=== PATIENT | male | born 1980 | race Caucasian/White ===

== ENCOUNTER 2021-02-14 02:31 | Emergency (ER) | payer MEDICAID ==
[~2021-02-14] VITALS: Ht 175.3 cm; Wt 72.6 kg
[2021-02-14 02:44] VITALS: BP 132/72
--- NOTE | 2021-02-14 03:03 | NUR ---
PATIENT CAME IN AMBULANCE DENIES ANY SUICIDE IDEATION .PATIENT STAY '' I ONLY FEELING DEPRESION OK? AND I AM NOT [place]OMEL[place] I LIVE IN [place] DO YOU UNDERSTAND THAT ? VITALS SIGNS IN NORMAL LIMITS NOW SLEEPING AFTER I FINISH MY TRIAGE //Aimee AGUILAR
[2021-02-14 04:07] LABS: ALBUMIN 3.5 g/dL (3.4-5.0); ANION GAP 11.7 (8-16); ASPARTATE AMINOTRANSFERASE 44 U/L (15-37); CARBON DIOXIDE 27.7 mmol/L (21-32); CHLORIDE 107 mmol/L (98-107); CREATININE 0.7 mg/dL (0.6-1.3); GFR ARICAN-AMERICAN 161 mL/min (>90); GLUCOSE 124 mg/dL (74-106); POTASSIUM 3.4 mmol/L (3.5-5.1); SODIUM SERUM 143 mmol/L (136-145); TOTAL BILIRUBIN 0.3 mg/dL (0.0-1.0); UREA NITROGEN, BLOOD 13 mg/dL (7-18)
[2021-02-14 04:10] LABS: ACETAMINOPHEN < 0.5 ug/ml (10-30); SALICYLATE < 2.8 mg/dL (2.8-20.0)
[2021-02-14 05:17] LABS: BASOPHILS % (AUTO) 0.3 % (0.0-2.0); EOSINOPHILS # (AUTO) 0.3 K/uL (0-0.4); EOSINOPHILS % (AUTO) 5.1 % (0.0-4.0); HEMATOCRIT 44.5 % (36-52); LYMPHOCYTES # (AUTO) 3.4 K/uL (2.0-11.5); LYMPHOCYTES % (AUTO) 51.5 % (20.5-51.1); MEAN CORPUSCULAR HEMOGLOBIN 31 pg (27-31); MEAN CORPUSCULAR HGB CONC 34 g/dL (33-37); MEAN CORPUSCULAR VOLUME 92.5 fL (80-94); MONOCYTES # (AUTO) 0.4 K/uL (0.8-1.0); MONOCYTES % (AUTO) 6.8 % (1.7-9.3); NEUTROPHILS # (AUTO) 2.4 K/uL (1.8-7.7); NEUTROPHILS % (AUTO) 36.3 % (42.2-75.2); PLATELET COUNT (AUTO) 244 K/uL (140-450); RED BLOOD CELL COUNT(AUTO) 4.81 MIL/uL (4.20-6.10); RED CELL DISTRIBUTION WIDTH 14.4 % (11.6-13.7); WHITE BLOOD COUNT (AUTO) 6.5 K/uL (4.8-10.8)
--- NOTE | 2021-02-14 07:30 | NUR ---
RECEIVED REPORT FROM LAUREN DC. ASSUMED CARE AT THIS TIME.
--- NOTE | 2021-02-14 07:50 | NUR ---
PATIENT PROVIDED WITH HOT BREAKFAST TRAY, PATIENT SITTING UP IN BED EATING. ALL NEEDS MET AT THIS TIME.
--- NOTE | 2021-02-14 08:25 | NUR ---
PATIENT SITTING UP IN BED FOR TELEPSYCH CONSULT WITH DR. Hernandez
--- NOTE | 2021-02-14 08:37 | NUR ---
MARY STANLEY CALLED AND REQUESTED TO PLACE PT ON 5150 HOLD PER RECOMENDATION FROM TELEPSY
--- NOTE | 2021-02-14 08:46 | NUR ---
COVID NOVEL AND ASHLEY SWAB COLLECTED AND HANDED TO CARPET OR RUG LAYER HELPER DIXIE THAIS
--- NOTE | 2021-02-14 09:00 | NUR ---
[facility] [place] [employer] BEDSIDE EVALUATING PATIENT FOR 5150 HOLD.
--- NOTE | 2021-02-14 11:00 | NUR ---
PATIENT RESTING IN BED WITH EYES CLOSED, ALL NEEDS MET AT THIS TIME.
[2021-02-14 11:09] LABS: APPEARANCE,URINE HAZY (CLEAR); BILIRUBIN,URINE NEGATIVE (NEGATIVE); BLOOD, URINE NEGATIVE (NEGATIVE); COLOR,URINE YELLOW (YELLOW); LEUKOCYTE ESTERASE ,URINE NEGATIVE (NEGATIVE); NITRITE, URINE NEGATIVE (NEGATIVE); UGLUCOSE NEGATIVE (NEGATIVE)
[2021-02-14 11:34] LABS: BARBITURATE, URINE NEGATIVE ng/ml (NEG <=200); BENZODIAZEPINE, URINE NEGATIVE ng/mL (NEG <=200); CANNABINOID, URINE NEGATIVE ng/mL (NEG <=50); COCAINE, URINE NEGATIVE ng/mL (NEG <=300); OPIATE, URINE NEGATIVE ng/mL (NEG <=2000); PHENCYCLIDINE SCREEN,URINE NEGATIVE ng/mL (NEG <=25)
--- NOTE | 2021-02-14 12:30 | NUR ---
PATIENT PROVIDED WITH LUNCH TRAY, SITTING UP IN BED EATING. ALL NEEDS MET AT THIS TIME.
--- NOTE | 2021-02-14 15:00 | NUR ---
PATIENT STATING HE IS FEELING ANXIOUS, DR. CAROLINA AWARE.
[2021-02-14] MEDS ORDERED: LORazepam 1 MG TAB PO ONE ×2 (15:15→22:45)
--- NOTE | 2021-02-14 15:30 | NUR ---
PER DR. CAROLINA PATIENT IS MEDICALLY CLEARED. PACKET FAXED TO [facility].
--- NOTE | 2021-02-14 16:00 | NUR ---
SPOKE WITH MACK FROM [facility], CONFIRMED PACKET HAS BEEN RECEIVED.
--- NOTE | 2021-02-14 16:45 | NUR ---
PATIENT APPEARS TO BE RESTING IN BED WITH EYES CLOSED, ALL NEEDS MET AT THIS TIME.
--- NOTE | 2021-02-14 18:08 | NUR ---
Packet has been fax to the following facilities [facility]
--- NOTE | 2021-02-14 18:30 | NUR ---
PATIENT APPEARS TO BE RESTING IN BED WITH EYES CLOSED, ALL NEEDS MET AT THIS TIME.
--- NOTE | 2021-02-14 19:07 | NUR ---
PATIENT PROVIDED WITH DINNER TRAY, SITTING UP IN BED EATING. ALL NEEDS MET AT THIS TIME.
--- NOTE | 2021-02-14 19:20 | NUR ---
PT GIVEN TWO SETS OF CRACKERS AND A CRANBERRY JUICE.
--- NOTE | 2021-02-14 19:27 | NUR ---
Pt report given to SAMMIE REBOLLAR. Transfer of care at this time.
--- NOTE | 2021-02-14 22:22 | NUR ---
PT REQUESTED ATIVAN . PT STATED HE WAS GETTING "ANXIETY"
--- NOTE | 2021-02-15 01:30 | NUR ---
PT SITTING UP IN BED.STATED HE WAS HUNGRY AND IF HE COULD HAVE MORE SNACKS.
--- NOTE | 2021-02-15 07:33 | NUR ---
Pt report given to JOANN. Transfer of care at this time.
--- NOTE | 2021-02-15 07:34 | NUR ---
RECEIVED REPORT FROM SMOOTH COCHRAN AND GITA RN, TRANSFER OF CARE AT THIS TIME.
--- NOTE | 2021-02-15 08:10 | NUR ---
PT RESTING, EASILY AROUSABLE, VSS, WILL CONTINUE TO MONITOR.
--- NOTE | 2021-02-15 10:21 | NUR ---
Mercedes gillespie in [facility] - 02/15/21 at 1102 by NIDA Report and continuation of care received from LAUREN Arriaza
--- NOTE | 2021-02-15 10:50 | NUR ---
GAVE REPORT TO LAUREN RIVERA. TRANSFER OF CARE AT THIS TIME.
--- NOTE | 2021-02-15 10:51 | NUR ---
Report and continuation of care received from LAUREN Arriaza
--- NOTE | 2021-02-15 11:00 | NUR ---
Patient sitting upright in bed eating breakfast meal tray. All pt needs met.
--- NOTE | 2021-02-15 11:24 | NUR ---
Patient requesting anxiety medication at this time. Dr. Mcknight made aware orders to be placed.
[2021-02-15] MEDS ORDERED: LORazepam 1 MG TAB PO ONE (11:25)
--- NOTE | 2021-02-15 11:32 | NUR ---
Patient resting in low-fowlers position. All pt needs met.
--- NOTE | 2021-02-15 13:07 | NUR ---
Patient awaken for vital signs. States he feels "a little less anxious." All pt needs met. Bed locked in lowest position, side rails x 1.
--- NOTE | 2021-02-15 13:15 | NUR ---
Lunch mealtray at bedside. Patient made aware; states "OK" and remains asleep.
--- NOTE | 2021-02-15 14:09 | NUR ---
Patient sitting upright in position of comfort completing lunch meal tray. All pt needs met.
--- NOTE | 2021-02-15 14:14 | NUR ---
PT AMBULATED TO RESTROOM WITH A STEADY GAIT.
--- NOTE | 2021-02-15 14:26 | NUR ---
Spoke with Abhi from [facility]; status update given regarding pt. Abhi states to have PCR swab completed. Orders to be placed.
--- NOTE | 2021-02-15 14:27 | NUR ---
Contacted Abhi from LAB regarding COVID NOVEL swab. States will call back
--- NOTE | 2021-02-15 14:53 | NUR ---
Abhi states no NOVEL on record in lab. New PCR to be administered
--- NOTE | 2021-02-15 15:34 | NUR ---
Patient has been accepted at [facility] MD: Dr. Moya Unit: [facility] Phone for report: [phone] Patient to be sent after 17:30 Tamiko hernadnez
--- NOTE | 2021-02-15 16:13 | NUR ---
Patient with both eyes closed; laying on R side in low-fowlers. No distress noted. Bed locked in lowest position, side rails x 1.
--- NOTE | 2021-02-15 17:30 | NUR ---
Patient to be transferred to [facility][Note 3]. Is being transferred due to higher level of care. Receiving facility has accepting physician and available space. ER physician has signed transfer form. Patient or responsible constitution party has agreed to transfer and signed form. Patient belongings inventoried and will be sent with patient. Copy of nursing notes, lab reports, EKG, Physicians Orders and X-rays to be sent with patient. Report called to LAUREN Anaya at receiving facility. [facility] ambulance service has been called for transfer. ETA is [id number]
--- NOTE | 2021-02-15 17:35 | NUR ---
Report given to LAUREN Cowan Addendum: 02/15/21 at 1736 by NIDA Requested for COVID results to be refaxed. [facility] made aware.
--- NOTE | 2021-02-15 17:36 | NUR ---
Patient sitting upright eating sandwich at this time. All pt needs met. VSS; RR even/unlabored.
[2021-02-15 17:38] VITALS: BP 118/73
--- NOTE | 2021-02-15 17:38 | NUR ---
[facility] at bedside
== END 2021-02-15 17:38 ==
LOC: MED 02:31
DX: R45.851 Suicidal ideations (principal); F32.9 Major depressive disorder, single episode, unspecified; F10.129 Alcohol abuse with intoxication, unspecified; E87.6 Hypokalemia; Y90.9 Presence of alcohol in blood, level not specified; Z20.822 Contact with and (suspected) exposure to COVID-19
CPT/HCPCS: 36415; 80053; 80305; 81003; 85025; 87426; 99285; G0480; G0482; U0003